=== PATIENT | female | born 1975 | race African-American/Black ===

== ENCOUNTER 2020-08-20 22:51 | Emergency (ER) | payer OTHER ==
[~2020-08-20] VITALS: Ht 154.9 cm; Wt 136.1 kg
[2020-08-21] MEDS ORDERED: NORCO5 PO (00:51)
[2020-08-21] MEDS ORDERED: NAPROSYN500 MG PO (00:51)
[2020-08-21 01:14] VITALS: BP 140/70
== END 2020-08-21 01:14 | disposition home or self-care (01) ==
LOC: ER 22:51
DX: S87.81XA Crushing injury of right lower leg, initial encounter (principal); S50.02XA Contusion of left elbow, initial encounter; S90.411A Abrasion, right great toe, initial encounter; Z88.1 Allergy status to other antibiotic agents; Z88.8 Allergy status to other drugs, medicaments and biological substances; Z90.49 Acquired absence of other specified parts of digestive tract; Z98.890 Other specified postprocedural states; Y04.0XXA Assault by unarmed brawl or fight, initial encounter; Y93.89 Activity, other specified; Y92.89 Other specified places as the place of occurrence of the external cause; Y99.9 Unspecified external cause status